=== PATIENT | male | born 1960 | race African-American/Black ===

== ENCOUNTER 2022-02-17 18:46 | Emergency (ER) | payer BC, MEDICAID ==
[~2022-02-17] VITALS: Ht 180.3 cm; Wt 79.5 kg
[2022-02-17 19:34] LABS: BASOPHILS % 0.9 % (0.0-2.0); EOSINOPHILS % 3.8 % (0.0-5.0); HEMATOCRIT. 40.9 % (42.0-52.0); HEMOGLOBIN. 14.3 g/dL (14.0-18.0); LYMPHOCYTES % 45.6 % (20.0-50.0); MEAN CORPUSCULAR HEMOGLOBIN 36.1 pg (28.0-32.0); MEAN CORPUSCULAR VOLUME 103.6 fL (80.0-94.0); MEAN PLATELET VOLUME 7.4 fl (7.4-10.4); MONOCYTES % 11.3 % (2.0-8.0); NEUTROPHILS % 38.4 % (40.0-76.0); PLATELET 359 x1000/uL (130-400); RED BLOOD CELL COUNT 3.95 mill/uL (4.7-6.1); RED CELL DISTRIBUTION WIDTH 13.7 % (11.6-14.6)
[2022-02-17 19:39] LABS: CHLORIDE 108 mEq/L (98-107)
[2022-02-17 19:44] LABS: ETHANOL BLOOD 240 mg/dL
[2022-02-17] MEDS ORDERED: LEVETIRACETAM 1000MG PREMIX 100 ML IV ONE (20:00)
[2022-02-17] MEDS ORDERED: SODIUM CHLORIDE 0.9% 1,000 ML IV ONE (20:00)
[2022-02-17 22:11] LABS: *AMPHETAMINES SCREEN URINE NEGATIVE (NEGATIVE); *BARBITURATES SCREEN URINE NEGATIVE (NEGATIVE); *BENZODIAZEPINES SCREEN URINE NEGATIVE (NEGATIVE); *COCAINE SCREEN URINE NEGATIVE (NEGATIVE); METHADONE URINE SCREEN NEGATIVE (NEGATIVE)
[2022-02-17 22:12] LABS: CANNABINOID URINE SCREEN PRESUMTIVE POSITIVE (NEGATIVE); OPIATES URINE SCREEN NEGATIVE (NEGATIVE); PHENCYCLIDINE URINE SCREEN NEGATIVE (NEGATIVE)
[2022-02-17 23:00] VITALS: BP 124/81
[2022-02-17] MEDS ORDERED: KEPP500 MT (23:03)
== END 2022-02-17 23:20 | disposition home or self-care (01) ==
LOC: ER 18:46
DX: R56.9 Unspecified convulsions (principal); F10.129 Alcohol abuse with intoxication, unspecified; Y90.8 Blood alcohol level of 240 mg/100 ml or more
CPT/HCPCS: 36415; 70450; 80053; 80305; 80320; 82962; 85025; 96361; 96365; 99285; J1953; J7030; G0480